=== PATIENT | male | born 1965 | race Caucasian/White ===

== ENCOUNTER 2022-02-01 16:11 | Emergency (ER) | payer BC, SELFPAY ==
--- NOTE | ~2022-02-01 | XR_ITS ---
XR abdomen/kub 1V 02/01/2022 18:48 Indication: Right nephrolithiasis Procedure: KUB Comparison: No prior studies for comparison. Findings: There is a right renal stone measuring 1 cm. Bowel gas pattern nonobstructive. Lung bases u nremarkable. No acute osseous abnormality. Impression: 1: Right nephrolithiasis. Reviewed, dictated and finalized at location A. Impression: 1: Right nephrolithiasis.
--- NOTE | ~2022-02-01 | CT_ITS ---
3 EXAMINATION: CT abdomen pelvis wo con DATE: 02/01/2022 17:57 INDICATION: Right flank pain. Nausea and vomiting. TECHNIQUE: Computed tomography (CT) of the abdomen and pelvis was performed without intravenous contr ast. The dose-length product was 339.20 mGy-cm. Automated exposure control and iterative reconstructi on technique were employed. COMPARISON: None. FINDINGS: There is atelectasis of the lung bases. Heart size normal. No significant vascular abnormal ity. Small hiatal hernia. There are gallstones. There are bilateral renal stones. There is right hydr oureteronephrosis secondary to an obstructing 4 mm right UVJ stone. Small fat-containing umbilical he rnia. Bladder is unremarkable. Nonobstructive bowel gas pattern. The liver, spleen, pancreas, adrenal glands are unremarkable. There is a hemangioma involving L1. No acute osseous abnormality. IMPRESSION: 1. Right UVJ stone measuring 4 mm with right hydroureteronephrosis. 2: Nonobstructing bilateral nephrolithiasis. 3: Cholelithiasis. Reviewed, dictated and finalized at location A.
[2022-02-01 16:14] VITALS: BP 185/102; PULSE 76; RESP 18; TEMP 36.4; O2SAT 97
[2022-02-01 16:31] LABS: Basophils Percent Auto 0.6 % (0.2-1.2); Eosinophils Absolute Auto 0.1 K/mm3 (0-0.3); Eosinophils Percent Auto 2.7 % (0-4.4); Hemoglobin 15.8 g/dL (14.0-18.0); Immature Granulocyte Absolute 0.02 K/mm3 (0.00-0.031); Immature Granulocyte Percent A 0.4 % (0-0.5); Lymphocytes Absolute Auto 0.92 K/mm3 (0.9-3.2); Lymphocytes Percent Auto 19.1 % (18.3-44.2); Mean Corpuscular HGB Conc 34.3 g/dl (32-36); Mean Corpuscular Hemoglobin 29.3 pg (26-34); Mean Corpuscular Volume 85.2 fl (80-100); Mean Platelet Volume 9.1 fl (7.4-10.4); Monocytes Absolute Auto 0.4 K/mm3 (0.1-0.6); Monocytes Percent Auto 8.1 % (2.6-8.5); Neutrophils Absolute Auto 3.3 K/mm3 (1.3-6.7); Neutrophils Percent Auto 69.1 % (45.5-73.1); Platelet Count Result 150 k/mm3 (150-375); Red Cell Distribution Width 12.7 % (11.5-14.5); White Blood Count 4.8 K/mm3 (4.5-10.0)
[2022-02-01 16:45] LABS: Alanine Aminotransferase 38 U/L (6-50); Albumin Level 4.9 g/dL (3.5-5.1); Alkaline Phosphatase 77 U/L (38-126); Anion Gap 13 mmol/L (8-16); Aspartate Amino Transferase 30 U/L (17-59); Bilirubin,Total 0.9 mg/dL (0.2-1.3); Blood Urea Nitrogen 27 mg/dL (9-20); Carbon Dioxide 26 mmol/L (22-30); Chloride 96 mmol/L (98-107); Estimated CRCL calculation 49 ml/min; Estimated Glomerular Filt Rate 42; Glucose 98 mg/dL (65-110); Potassium 3.9 mmol/L (3.4-5.0); Sodium 135 mmol/L (137-145)
[2022-02-01 17:00] LABS: Appearance Urine Clear (Clear); Bilirubin Urine Negative (Negative); Blood Urine 1+ (Negative); Glucose Urine UA Negative (Negative); Ketones Urine Negative (Negative); Leukocyte Esterase Ur Negative LEU/UL (Negative); Nitrate Urine Negative (Negative); Protein Urine Negative (Negative); Specific Grav Ur <= 1.005 (1.001-1.035); Urobilinogen Urine 0.2 mg/dL (<2.0)
[2022-02-01 17:02] LABS: Add Urine Microscopic? YES; Color Urine Light Yellow (Yellow)
[2022-02-01 17:10] LABS: Bacteria Urine Trace /hpf; Mucus Urine Rare /lpf; RBC Urine 0-2 /hpf (0-2); WBC Urine 0-3 /hpf
--- NOTE | 2022-02-01 17:37 | ED.GENADULT ---
HPI - General Adult General Chief complaint: Abdominal Pain Stated complaint: kidney stones Time Seen by Provider: 02/01/22 16:42 History of Present Illness HPI narrative: Patient is a 56-year-old male with a history of nephrolithiasis here for evaluation of right flank pain for the past several days. Patient states the pain is sharp and intermittent in nature, initiates in his right flank and now has moved down to his right groin. He notes a similar sensation with previous kidney stones. Additionally reports some nausea but no vomiting, diarrhea, fevers, urinary symptoms. He has been seen by a urologist at [facility] in the past, but has not seen one for several years. Denies history of kidney disease; states he drinks a gallon of water per day. Related Data Allergies Allergy/AdvReac Type Severity Reaction Status Date / Time No Known Allergies Allergy Verified 02/01/22 16:43 Review of Systems Review of Systems: Gen.: Denies fevers or chills Eyes: Denies eye pain or visual change ENT: Denies congestion Respiratory: Denies shortness of breath or cough CV: Denies chest pain or palpitations GI: Reports nausea. Denies abdominal pain emesis or diarrhea denies burning, urgency, frequency or hematuria Musculoskeletal: Reports right flank pain. Denies back pain or muscle pain Neuro: Denies numbness, tingling, weakness or focal weakness Skin: Denies rash Except as documented, all other systems reviewed and negative Exam Narrative: APPEARANCE: No acute distress, nontoxic, resting in bed EYES: EOMI HEENT: Normocephalic, atraumatic, OMM RESPIRATORY: No respiratory distress Clear to auscultation bilaterally with no rhonchi wheezing or rales. CARDIOVASCULAR: Regular rate and rhythm without murmurs rubs or gallops. ABDOMINAL: Soft, nontender, nondistended, no rebound or guarding MUSCULOSKELETAl: Moves all extremities. No clubbing, cyanosis or edema. NEURO: Awake and alert. Following commands, speech normal, no focal deficits SKIN:: Warm, dry. No rashes lesions or abrasions PSYCHIATRIC: Normal affect/mood Course Consultations Consultation #1: Discussed case with Dr. Moses, urologist, will see in office this week; recommends KUB/urine strainer and tamsulosin Date: 02/01/22 Time: 18:06 Vital Signs Vital signs: Vital Signs Temperature 97.5 F L 02/01/22 16:14 Pulse Rate 76 02/01/22 16:14 Respiratory Rate 18 02/01/22 16:14 Blood Pressure 185/102 H 02/01/22 16:14 Pulse Oximetry 97 02/01/22 16:14 Temperature 97.5 F L 02/01/22 16:14 Pulse Rate 76 02/01/22 16:14 Respiratory Rate 18 02/01/22 16:14 Blood Pressure 185/102 H 02/01/22 16:14 Pulse Oximetry 97 02/01/22 16:14 Medical Decision Making MDM Narrative Medical decision making narrative: 56-year-old male here for evaluation of right flank pain that is radiating into his right groin, nausea over the past several days it feels similar to history of kidney stones. Here, he is nontoxic-appearing, his blood pressure is elevated but vital signs are otherwise normal. His BUN/creatinine are elevated at 27/1.7, do not have previous to compare to. UA with blood but does not appear infected. He has a right UVJ stone that is 4 mm causing mild obstructive pathology. Patient currently asymptomatic and declines any pain medicine. Discussed with urology given slight elevation in creatinine; who agrees with rehydration in ED and outpatient followup given patient looks clinically well and is pain-free. Will shoot KUB in ED to track progression and provide patient with urine strainer to go home with. Patient updated and agreeable to plan. Vital Signs Vital Signs: Vital Signs Temperature 97.5 F L 02/01/22 16:14 Pulse Rate 76 02/01/22 16:14 Respiratory Rate 18 02/01/22 16:14 Blood Pressure 185/102 H 02/01/22 16:14 Pulse Oximetry 97 02/01/22 16:14 Temperature 97.5 F L 02/01/22 16:14 Pulse Rate 76 02/01/22 16:14 Respiratory Rate
[2022-02-01] MEDS: SODIUM CHLORIDE 0.9% IV 1,000 ML 999 ML IV CONT (17:42)
[2022-02-01 19:13] VITALS: BP 163/101; PULSE 66; RESP 16; O2SAT 98
== END 2022-02-01 19:16 | disposition home or self-care (01) ==
PROVIDERS: Emergency Provider Emergency Medicine
DX: N13.2 Hydronephrosis with renal and ureteral calculous obstruction (principal); Z87.442 Personal history of urinary calculi; K80.20 Calculus of gallbladder without cholecystitis without obstruction
CPT/HCPCS: 36415; 74018; 74176; 80053; 81001; 85025; 96360; 99284; J7030